=== PATIENT | female | born 1950 | race Caucasian/White ===

== ENCOUNTER 2018-08-09 08:55 | Emergency (ER) | payer OTHER, BC ==
[~2018-08-09] VITALS: Ht 160 cm; Wt 51.3 kg
[2018-08-09 08:55] VITALS: BP_SYST 111
--- NOTE | 2018-08-09 08:55 | NUR ---
Patient triaged and placed in waiting room. VSS and patient appears in no acute distress at this time. Accompanied by SELF, awaiting available bed, and MD notified of need for MSE.
--- NOTE | 2018-08-09 10:08 | NUR ---
BROUGHT BACK TO BED #2 AND REPORT GIVEN TO ESTER
--- NOTE | 2018-08-09 10:19 | NUR ---
PATIENT CAME IN COMPLAINING OF CONSTIPATION SINCE TUESDAY. PATIENT SAID LAST BM WAS TUESDAY BUT SHE ONLY HAD BROWN MUCUS. PATIENT WENT TO CLINIC AND THEY GAVE HER MIRLAX, STOOL SOFTENERS, AND MAG CITRATE. PATIENT TOOK THEM ALL BUT ONLY HAD ONLY LITTLE RELIEF. PATIENT SAID SHE HAS URGE TO GO. PATIENT COMPLAINING OF ACHING DISTENTION AND PAIN 6/10 IN ABD. PATIENT STATES SHE IS PASSING GAS. PATIENT HAS DECREASED APPETITE. PATIENT ALERT AND ORIENTED X4. PATIENT NOT COMPLAINING OF SOB, NAUSEA, OR VOMITING.
--- NOTE | 2018-08-09 10:25 | NUR ---
DR TEIXEIRA AT BEDSIDE FOR EVALUATION
--- NOTE | 2018-08-09 10:53 | NUR ---
ER Dr. SIBLEY at bedside examining patient.
[2018-08-09] MEDS ORDERED: NACL 0.9% 1,000 ML IV ONE (11:00)
[2018-08-09 11:20] LABS: BASOPHILS # (AUTO) 0.1 K/uL (0.0-0.2); BASOPHILS % (AUTO) 0.5 % (0.0-2.0); EOSINOPHILS # (AUTO) 0.1 K/uL (0.0-0.4); EOSINOPHILS % (AUTO) 0.6 % (0.0-4.0); LYMPHOCYTES # (AUTO) 0.6 K/uL (1.0-5.5); LYMPHOCYTES % (AUTO) 5.5 % (20.5-51.5); MEAN CORPUSCULAR HEMOGLOBIN 32 pg (27-31); MEAN CORPUSCULAR HGB CONC 33 % (32-36); MEAN CORPUSCULAR VOLUME 95 fL (79.0-98.0); MONOCYTES # (AUTO) 0.8 K/uL (0.0-1.0); MONOCYTES % (AUTO) 7.4 % (1.7-9.3); NEUTROPHILS # (AUTO) 9.7 K/uL (1.8-7.7); PLATELET COUNT (AUTO) 293 K/uL (130-430); RED BLOOD CELL COUNT(AUTO) 4.12 MIL/uL (4.2-6.2); RED CELL DISTRIBUTION WIDTH 12.7 % (9.0-15.0); WHITE BLOOD COUNT (AUTO) 11.2 K/uL (4.8-10.8)
--- NOTE | 2018-08-09 11:20 | NUR ---
Rectal exam performed by DR SIBLEY with ME at bedside during procedure. Patient tolerated well.
[2018-08-09] MEDS ORDERED: MAGNESIUM CITRATE 300 ML ORAL SOLUTION PO ONE (11:30)
--- NOTE | 2018-08-09 11:32 | NUR ---
PATIENT WHEELED TO CT IN STABLE CONDITION.
[2018-08-09 11:34] LABS: CALCIUM 9.4 mg/dL (8.4-11.0); CREATININE 0.93 mg/dL (0.55-1.30); POTASSIUM 4.2 mmol/L (3.5-5.1)
--- NOTE | 2018-08-09 11:35 | NUR ---
PATIENT STATES MAG CITRATE WORKING A LITTLE. PATIENT HAD SMALL BM.
[2018-08-09 11:39] LABS: ALBUMIN 3.3 g/dL (3.4-4.8); TOTAL BILIRUBIN 0.6 mg/dL (0.0-1.0)
--- NOTE | 2018-08-09 11:45 | NUR ---
PATIENT BACK FROM RADIOLOGY IN STABLE CONDITION.
[2018-08-09 11:46] LABS: BILIRUBIN,URINE NEGATIVE (NEGATIVE); BLOOD, URINE 1+ (NEGATIVE); CLARITY/URINE SL CLOUDY (CLEAR); COLOR,URINE YELLOW (YELLOW); GLUCOSE,URINE NEGATIVE (NEGATIVE); KETONES,URINE 3+ (NEGATIVE); LEUKOCYTE ESTERASE ,URINE NEGATIVE (NEGATIVE); NITRITE, URINE NEGATIVE (NEGATIVE); PH,URINE 7.5 (5.0-8.0); PROTEIN URINE TRACE (NEGATIVE); UROBILINOGEN,URINE 0.2 (0.2-1.0)
[2018-08-09 11:55] LABS: BACTERIA,URINE FEW /HPF (None Seen); MUCUS,URINE 1+ /LPF (None Seen); URINE AMORPHOUS PHOSPHATES 2+ /HPF (None Seen); WBC,URINE 0-3 /HPF (0-3)
--- NOTE | 2018-08-09 13:15 | NUR ---
Patient given written and verbal discharge instructions and verbalizes understanding. ER MD discussed with patient the results and treatment provided. Patient in stable condition. ID arm band removed. IV catheter removed intact and dressing applied, no active bleeding. Rx of agumentin given. Patient educated on pain management and to follow up with PMD. Pain Scale 2/10. Opportunity for questions provided and answered. Medication side effect fact sheet provided.
[2018-08-09 13:16] VITALS: BP_SYST 146
== END 2018-08-09 13:15 | disposition home or self-care (01) ==
LOC: SED 08:55
DX: K57.92 Diverticulitis of intestine, part unspecified, without perforation or abscess without bleeding (principal); K59.00 Constipation, unspecified; E78.00 Pure hypercholesterolemia, unspecified; K21.9 Gastro-esophageal reflux disease without esophagitis; I10 Essential (primary) hypertension; Z88.1 Allergy status to other antibiotic agents
CPT/HCPCS: 36415; 74018; 74176; 80053; 81000; 82272; 83690; 85025; 99284; J7030